=== PATIENT | male | born 1985 | race Caucasian/White ===

== ENCOUNTER 2019-03-24 09:54 | Emergency (ER) | payer OTHER ==
--- NOTE | 2019-03-24 10:22 | EDPHYS ---
Physician Documentation [facility] Name: Seamus Hahn Age: 33 yrs Sex: Male : 1985 Arrival Date: 03/24/2019 Time: 09:54 Bed 19 Private MD: ED Physician Ted Parson HPI: 03/24 10:19 This 33 yrs old Male presents to ER via Ambulatory with complaints of Back kb Pain. 10:19 The patient presents with pain that is acute. The symptoms are located in the right low kb back. Onset: The symptoms/episode began/occurred just prior to arrival. The pain does not radiate. Associated signs and symptoms: The patient has no apparent associated signs or symptoms. The problem was sustained when lifting heavy object. Modifying factors: The patient symptoms are alleviated by nothing, the patient symptoms are aggravated by any movement. Severity of symptoms: At their worst the symptoms were mild, in the emergency department the symptoms are unchanged. The patient has not experienced similar symptoms in the past. The patient has not recently seen a physician. Pt reports he was lifting product off of a shelf at work and hurt his back. c/o pain to right lower back. No spinal tenderness. Pain does not radiate. . Historical: - Allergies: 09:59 No Known Allergies; la1 - PMHx: 09:59 None; la1 - PSHx: 09:59 None; la1 - Immunization history:: Adult Immunizations up to date. - Social history:: Smoking status: Patient/guardian denies using tobacco. - Ebola Screening: : No symptoms or risks identified at this time. ROS: 10:18 Constitutional: Negative for fever, chills, and weight loss, Cardiovascular: Negative kb for chest pain, palpitations, and edema, Respiratory: Negative for shortness of breath, cough, wheezing, and pleuritic chest pain, Abdomen/GI: Negative for abdominal pain, nausea, vomiting, diarrhea, and constipation, : Negative for injury, bleeding, discharge, and swelling, MS/Extremity: Negative for injury and deformity, Skin: Negative for injury, rash, and discoloration, Neuro: Negative for headache, weakness, numbness, tingling, and seizure. 10:18 Back: Positive for pain at rest, pain with movement, of the right low back. Exam: 10:18 Constitutional: This is a well developed, well nourished patient who is awake, alert, kb and in no acute distress. Head/Face: Normocephalic, atraumatic. Chest/axilla: Normal chest wall appearance and motion. Nontender with no deformity. No lesions are appreciated. Cardiovascular: Regular rate and rhythm with a normal S1 and S2. No gallops, murmurs, or rubs. Normal PMI, no JVD. No pulse deficits. Respiratory: Lungs have equal breath sounds bilaterally, clear to auscultation and percussion. No rales, rhonchi or wheezes noted. No increased work of breathing, no retractions or nasal flaring. Abdomen/GI: Soft, non-tender, with normal bowel sounds. No distension or tympany. No guarding or rebound. No evidence of tenderness throughout. Skin: Warm, dry with normal turgor. Normal color with no rashes, no lesions, and no evidence of cellulitis. MS/ Extremity: Pulses equal, no cyanosis. Neurovascular intact. Full, normal range of motion. Neuro: Awake and alert, GCS 15, oriented to person, place, time, and situation. Cranial nerves II-XII grossly intact. Motor strength 5/5 in all extremities. Sensory grossly intact. Cerebellar exam normal. Normal gait. 10:18 Back: pain, that is mild, ROM is normal, normal spinal alignment noted. Vital Signs: 10:00 BP 126 / 76; Pulse 67; Resp 16; Temp 97.8(TE); Pulse Ox 100% on R/A; Weight 65.77 kg; la1 Height 5 ft. 6 in. (167.64 cm); 10:00 Body Mass Index 23.40 (65.77 kg, 167.64 cm) la1 MDM: 10:04 Patient medically screened. kb 10:18 Data reviewed: vital signs, nurses notes. Data interpreted: Pulse oximetry: on room air kb is 100 %. Interpretation: normal. Counseling: I had a detailed discussion with the patient and/or guardian regarding: the historical points, exam findings, and any diagnostic results supporting the discharge/admit diagnosis, the need for outpatient follow up, a family practitioner, to return to the emergency department if symptoms worsen or persist or if there are any questions or concerns that arise at home. Administered Medications: 10:30 Drug: Flexeril 10 mg Route: PO; em 10:47 Follow up: Response: No adverse reaction em 10:30 Drug: TORadol 30 mg Route: IM; Site: right deltoid; em 10:47 Follow up: Response: No adverse reaction; Pain is decreased em Disposition: 03/25 07:09 Co-signature as Attending Physician, Ted Parson MD. ma2 Disposition: 03/24/19 10:20 Discharged to Home. Impression: Low back pain. - Condition is Stable. - Discharge Instructions: Back Injury Prevention, [id number], Back Pain, Adult, [id number]. - Prescriptions for Cyclobenzaprine 10 mg Oral Tablet - take 1 tablet by ORAL route every 8 hours As needed; 21 tablet. Diclofenac Sodium 75 mg Oral Tablet, Delayed Release (E.C.) - take 1 tablet by ORAL route 2 times per day As needed; 30 tablet. - Medication Reconciliation Form, Thank You Letter, Antibiotic Education, Prescription Opioid Use form. - Follow up: Emergency Department; When: As needed; Reason: Worsening of condition. Follow up: Private Physician; When: 2 - 3 days; Reason: Recheck today's complaints, Continuance of care, Re-evaluation by your physician. Signatures: Brianna Epstein, JONATHON-C AIR SUPPORT CONTROL OFFICER-Nilson Melton, SPOOLER OPERATOR AUTOMATIC SPOOLER OPERATOR AUTOMATIC Agustin Payne RN RN la1 Alzahri, Mohammad, MD MD ma2 Corrections: (The following items were deleted from the chart) 03/24 10:56 10:20 03/24/2019 10:20 Discharged to Home. Impression: Low back pain. Condition is em Stable. Forms are Medication Reconciliation Form, Thank You Letter, Antibiotic Education, Prescription Opioid Use. Follow up: Emergency Department; When: As needed; Reason: Worsening of condition. Follow up: Private Physician; When: 2 - 3 days; Reason: Recheck today's complaints, Continuance of care, Re-evaluation by your physician. kb
--- NOTE | 2019-03-24 10:22 | ER ---
Nurse's Notes [facility] Name: Seamus Hahn Age: 33 yrs Sex: Male : 1985 Arrival Date: 03/24/2019 Time: 09:54 Bed 19 Private MD: Diagnosis: Low back pain Presentation: 03/24 10:00 Presenting complaint: Patient states: I was lifting something off of a shelf that was la1 about 20 pounds at work at about 0700 today and then i started having back pain on the lower left. Transition of care: patient was not received from another setting of care. Onset of symptoms was March 24, 2019. Risk Assessment: Do you want to hurt yourself or someone else? Patient reports no desire to harm self or others. Initial Sepsis Screen: Does the patient meet any 2 criteria? No. Patient's initial sepsis screen is negative. Does the patient have a suspected source of infection? No. Patient's initial sepsis screen is negative. Care prior to arrival: None. 10:00 Method Of Arrival: Ambulatory la1 10:00 Acuity: HUSSAIN 5 la1 Historical: - Allergies: 09:59 No Known Allergies; la1 - PMHx: 09:59 None; la1 - PSHx: 09:59 None; la1 - Immunization history:: Adult Immunizations up to date. - Social history:: Smoking status: Patient/guardian denies using tobacco. - Ebola Screening: : No symptoms or risks identified at this time. Screenin:25 Abuse screen: Denies threats or abuse. Nutritional screening: No deficits noted. em Tuberculosis screening: No symptoms or risk factors identified. Fall Risk None identified. Assessment: 10:25 General: Appears in no apparent distress. comfortable, Behavior is calm, cooperative. em Pain: Complains of pain in right low back Pain currently is 8 out of 10 on a pain scale. Quality of pain is described as sharp, shooting, Aggravated by increased activity, repositioning. Neuro: Level of Consciousness is awake, alert, obeys commands, Oriented to person, place, time, situation, Appropriate for age. Cardiovascular: Capillary refill < 3 seconds Patient's skin is warm and dry. Respiratory: Airway is patent Respiratory effort is even, unlabored, Respiratory pattern is regular, symmetrical. Derm: Skin is intact, is healthy with good turgor, Skin is pink, warm \T\ dry. Musculoskeletal: Capillary refill < 3 seconds, Range of motion: intact in all extremities. 10:25 Reassessment: I agree with assessment completed by Nilson Fuentes LVN . aa5 Vital Signs: 10:00 BP 126 / 76; Pulse 67; Resp 16; Temp 97.8(TE); Pulse Ox 100% on R/A; Weight 65.77 kg; la1 Height 5 ft. 6 in. (167.64 cm); 10:00 Body Mass Index 23.40 (65.77 kg, 167.64 cm) la1 ED Course: 09:54 Patient arrived in ED. as 10:01 Triage completed. la1 10:01 Arm band placed on right wrist. la1 10:03 Bri[facility] Epstein [facility]C [facility]. kb 10:03 Ted Parson MD is Attending Physician. kb 10:06 Nilson Fuentes LVN is Primary Nurse. em 10:25 Patient has correct armband on for positive identification. Placed in gown. Bed in low em position. Adult w/ patient. 10:34 No provider procedures requiring assistance completed. Patient did not have IV access em during this emergency room visit. Administered Medications: 10:30 Drug: Flexeril 10 mg Route: PO; em 10:47 Follow up: Response: No adverse reaction em 10:30 Drug: TORadol 30 mg Route: IM; Site: right deltoid; em 10:47 Follow up: Response: No adverse reaction; Pain is decreased em Outcome: 10:20 Discharge ordered by MD. kb 10:55 Discharged to home ambulatory, with family. em 10:55 Condition: good 10:55 Discharge instructions given to patient, family, Instructed on discharge instructions, follow up and referral plans. medication usage, Demonstrated understanding of instructions, follow-up care, medications, Prescriptions given X 2. 10:56 Patient left the ED. em Signatures: Brianna Epstein FNP-C FNP-Nilson Melton LVN LVN em Kimmie Jama Audri, RN RN aa5 Agustin Shay RN RN la1
[2019-03-24] MEDS ORDERED: CYCLOBENZAPRINE 10 MG TAB ONE (10:27)
[2019-03-24] MEDS ORDERED: KETOROLAC 30 MG/ML INJ ONE (10:27)
[2019-03-24 11:06] VITALS: BP 126/76; TEMP 97.8; O2SAT 100
== END 2019-03-24 10:56 | disposition home or self-care (01) ==
LOC: ER 09:54
DX: M54.5 Low back pain (principal)
CPT/HCPCS: 96372; 99283